=== PATIENT | male | born 1965 | race Hispanic/Latino ===

== ENCOUNTER 2024-04-02 07:07 | Day surgery (SDC) | payer MEDICARE ==
[2024-04-02] VITALS (12 sets, daily range): BP systolic 108–124; BP diastolic 52–78; PULSE 52–64; RESP 8–16; TEMP 97.1–98
[~2024-04-02] VITALS: Ht 156.2 cm; Wt 63.0 kg
[~2024-04-02 07:07] MED LIST: ATOR10 PO; MILK175C5 PO; OMEP40CA21 PO; TAMS-1 PO
[2024-04-02] MEDS: 0.9%NACL 1000ML 1,000 ML IV ONE (08:05)
[2024-04-02] MEDS ORDERED: proPOFol 10 MG/ML 20ML VIAL IV ONE (09:38)
== END 2024-04-02 11:35 | disposition home or self-care (01) ==
LOC: ENDO 07:07 → DAH 07:07 → ENDO 11:35
PROVIDERS: ATTEND Internal Medicine Gastroenterology
DX: Z12.11 Encounter for screening for malignant neoplasm of colon (principal); K57.30 Diverticulosis of large intestine without perforation or abscess without bleeding; K64.3 Fourth degree hemorrhoids; R63.30 Feeding difficulties, unspecified; K44.9 Diaphragmatic hernia without obstruction or gangrene; Z79.899 Other long term (current) drug therapy
CPT/HCPCS: J7030 ×2; J2704; A4620; G0121; A7002; J3490